=== PATIENT | male | born 1980 | race African-American/Black ===

== ENCOUNTER 2017-12-20 06:21 | Emergency (ER) | payer OTHER ==
[~2017-12-20] VITALS: Ht 182.9 cm; Wt 70.0 kg
[2017-12-20 06:29] VITALS: BP 130/71; PULSE 81; RESP 18; TEMP 97.8; O2SAT 98
[2017-12-20 06:56] LABS: AUTOMATED NEUTROPHIL # 2.5 TH/MM3 (1.8-7.7); BASOPHIL # 0.1 TH/MM3 (0-0.2); BASOPHIL % 0.9 % (0.0-2.0); EOSINOPHIL # 0.2 TH/MM3 (0-0.4); HEMATOCRIT 43.7 % (39.0-51.0); HEMOGLOBIN 15.3 GM/DL (13.0-17.0); LYMPH % 46.1 % (9.0-44.0); LYMPHOCYTE # 2.7 TH/MM3 (1.0-4.8); MEAN CELL VOLUME 98.2 FL (80.0-100.0); MEAN CORPUSCULAR HEMOGLOBIN 34.4 PG (27.0-34.0); MEAN PLATELET VOLUME 8.5 FL (7.0-11.0); MONO % 5.8 % (0.0-8.0); MONOCYTE # 0.3 TH/MM3 (0-0.9); NEUT % 43.2 % (16.0-70.0); PLATELET COUNT 316 TH/MM3 (150-450); RED BLOOD COUNT 4.45 MIL/MM3 (4.50-5.90); RED CELL DISTRIBUTION WIDTH 13.2 % (11.6-17.2); WHITE BLOOD COUNT 5.7 TH/MM3 (4.0-11.0)
--- NOTE | 2017-12-20 07:19 | PD ---
HPI Chief Complaint: Psychiatric Symptoms Time Seen by Provider: 07:17 Travel History International Travel<30 days: No Contact w/Intl Traveler<30days: No Traveled to known affect area: No History of Present Illness HPI 36-year-old male brought in under the Casey act with reported statements to hurt an unknown constitution party, as well as himself. Patient was felt to be intoxicated upon arrival. Patient is not very cooperative. Not a good historian. PFSH Past Medical History Hx Anticoagulant Therapy: No Cardiovascular Problems: No Chemotherapy: No Cerebrovascular Accident: No Diabetes: No Respiratory: No Past Surgical History Hysterectomy: No Social History Alcohol Use: Yes Tobacco Use: Yes Substance Use: Yes Allergies-Medications (Allergen,Severity, Reaction): Coded Allergies: Unable to Assess (Verified Allergy, Unknown, 12/20/17) Reported Meds & Prescriptions Reported Meds & Active Scripts Active Active Prescriptions or Reported Medications Unobtainable Review of Systems ROS Limitations: Intoxication, Uncooperative, Poor Historian Except as stated in HPI: all other systems reviewed are Neg General / Constitutional: No: Fever Eyes: No: Visual changes HENT: No: Headaches Cardiovascular: No: Chest Pain or Discomfort Respiratory: No: Shortness of Breath Gastrointestinal: No: Abdominal Pain Genitourinary: No: Dysuria Musculoskeletal: No: Pain Skin: No Rash Neurologic: No: Weakness Psychiatric: No: Depression Endocrine: No: Polydipsia Hematologic/Lymphatic: No: Easy Bruising Physical Exam Exam Limitations: Intoxication, Uncooperative Narrative GENERAL: Patient is arousable but otherwise appears intoxicated and in no acute distress. SKIN: Warm and dry. Normal color. Normal turgor. No signs of trauma HEAD: Atraumatic. Normocephalic. EYES: Pupils equal and round. No scleral icterus. No injection or drainage. ENT: No nasal bleeding or discharge. Mucous membranes pink and moist. NECK: Trachea midline. Supple. CARDIOVASCULAR: Regular rate and rhythm. RESPIRATORY: No accessory muscle use. Clear to auscultation. Breath sounds equal bilaterally. GASTROINTESTINAL: Abdomen soft, non-tender, nondistended. Hepatic and splenic margins not palpable. MUSCULOSKELETAL: Extremities without clubbing, cyanosis, or edema. No obvious deformities. NEUROLOGICAL: Awake and alert. No obvious cranial nerve deficits. Motor grossly within normal limits. Five out of 5 muscle strength in the arms and legs. Normal speech. Data Data Last Documented VS Vital Signs Date Time Temp Pulse Resp B/P (MAP) Pulse Ox O2 Delivery O2 Flow Rate FiO2 12/20/17 06:29 97.8 81 18 130/71 (90) 98 Orders Orders Complete Blood Count With Diff (12/20/17 06:38) Comprehensive Metabolic Panel (12/20/17 06:38) Psych Screen (12/20/17 06:38) Diet Regular Basic (12/20/17 Breakfast) Drug Screen, Random Urine (12/20/17 06:38) Alcohol (Ethanol) (12/20/17 06:38) Labs Laboratory Tests Test 12/20/17 06:46 White Blood Count 5.7 TH/MM3 Red Blood Count 4.45 MIL/MM3 Hemoglobin 15.3 GM/DL Hematocrit 43.7 % Mean Corpuscular Volume 98.2 FL Mean Corpuscular Hemoglobin 34.4 PG Mean Corpuscular Hemoglobin Concent 35.0 % Red Cell Distribution Width 13.2 % Platelet Count 316 TH/MM3 Mean Platelet Volume 8.5 FL Neutrophils (%) (Auto) 43.2 % Lymphocytes (%) (Auto) 46.1 % Monocytes (%) (Auto) 5.8 % Eosinophils (%) (Auto) 4.0 % Basophils (%) (Auto) 0.9 % Neutrophils # (Auto) 2.5 TH/MM3 Lymphocytes # (Auto) 2.7 TH/MM3 Monocytes # (Auto) 0.3 TH/MM3 Eosinophils # (Auto) 0.2 TH/MM3 Basophils # (Auto) 0.1 TH/MM3 CBC Comment DIFF FINAL Differential Comment MDM Medical Decision Making Medical Screen Exam Complete: Yes Emergency Medical Condition: Yes Differential Diagnosis Casey act. Homicidal ideation. Suicidal ideation. Narrative Course Psychiatric labs ordered per protocol. Psych screen is ordered. Scripts Unable to Obtain Active Prescriptions or Reported Meds Condition: Stable Lebron Danielson Dec 20, 2017 07:19
[2017-12-20 07:25] LABS: ALBUMIN 4.3 GM/DL (3.4-5.0); AST (GOT) 21 U/L (15-37); BICARBONATE 22.3 MEQ/L (21.0-32.0); BLOOD UREA NITROGEN 10 MG/DL (7-18); CALCIUM 8.5 MG/DL (8.5-10.1); CHLORIDE 108 MEQ/L (98-107); CREATININE 1.14 MG/DL (0.60-1.30); GLOMERULAR FILTRATION RATE 73 ML/MIN (>89); GLUCOSE,RANDOM 89 MG/DL (74-106); SODIUM (NA) 142 MEQ/L (136-145)
[2017-12-20 07:29] LABS: ALKALINE PHOSPHATASE 46 U/L (45-117); ALT (GPT) 21 U/L (12-78); TOTAL BILIRUBIN ADULT 0.3 MG/DL (0.2-1.0); TOTAL PROTEIN 8.3 GM/DL (6.4-8.2)
[2017-12-20 11:00] VITALS: BP 141/80; PULSE 95; RESP 18; TEMP 98.7; O2SAT 97
--- NOTE | 2017-12-20 17:28 | PD ---
History of Present Illness Chief Complaint: Psychiatric Symptoms Time Seen by Provider: 17:00 Travel History International Travel<30 Days: No Contact w/Intl Traveler<30days: No Known affected area: No Legal Status Legal Status: Casey Act Casey Act Signed By: Cuco Casey Act Comment: Officer Florencio Marquez #[id number] History of Present Illness: History of Present Illness HPI 36-year-old, -Ang[place], single male with no previous psychiatric history , presents under the Casey act initiated by law enforcement. The report alleges that the patient stated he wanted to hurt an unknown constitution party and that everyone takes them as a joke. He said he wanted to hurt himself and F somebody else up. He is intoxicated with an unknown substance." Patient on arrival to the ED had a blood alcohol level of 186. Toxicology obtained positive for cocaine. EMR reviewed. No previous contact with [facility] psychiatry. Patient was monitored and allowed to sober up clinically. He presented no behavioral concerns, no suicidality. Patient is seen. He has asleep but awakens easily. He is clinically sober. No evidence of any withdrawal. His speech is clear and logical, of low tone, normal rate. He states that the police brought him here because he was threatening other people where he is staying. He states " they were cursing me out". He also states" when I go to drinking people bother me." The patient does not present any evidence of any psychosis, no eldon or hypomania. He denies any hallucinations. The patient denies any symptom of depression or anxiety. Patient is currently denying any suicidal or homicidal ideation, intent or plan. The remainder of psychiatric review of systems is negative. He does not own any weapons. He denies any previous history of any violence. He tells me that he came down to [facility] [place] come [place] some friends and after some time and after he became intoxicated he got into some sort of altercation with his friends. He is requesting to be discharged and wants to return back to stay with his sister in [facility]. [facility] Past Medical History Medical History: Denies Significant Hx Hx Anticoagulant Therapy: No Cardiovascular Problems: No Chemotherapy: No Cerebrovascular Accident: No Diabetes: No Diminished Hearing: No Respiratory: No Tetanus Vaccination: Unknown Influenza Vaccination: Yes Past Surgical History Surgical History: No Previous Surgery Hysterectomy: No Psychiatric History Psychiatric History Hx Psychiatric Treatment: Pt denies any psych history. No hx of suicide attempts. No history of self-injurious behavior. History of Inpatient Treatment: No Guns or firearms in home: No Social History Single male. Lives with his sister. Completed 07/2711 grade education. Works through the labor force. Hx Alcohol Use: Yes Hx Tobacco Use: Yes Hx Substance Use: Yes Substance Use Type: Alcohol (Patient denies that he drinks every day.), Cocaine Hx of Substance Use Treatment: No Family Psychiatric History Negative Allergies-Medications (Allergen,Severity, Reaction): Coded Allergies: Unable to Assess (Verified Allergy, Unknown, 12/20/17) Reported Meds & Prescriptions Reported Meds & Active Scripts Active Active Prescriptions or Reported Medications Unobtainable Review of Systems Psychiatric: DENIES: Anxiety, Confusion, Mood changes, Depression, Hallucinations, Agitation, Suicidal Ideation, Homicidal Ideation, Delusions Except as stated in HPI: all other systems reviewed are Neg Mental Status Examination Appearance: Appropriate (Dressed in [facility]) Consciousness: Alert Orientation: x4 Motor Activity: Normal gait Speech: Unremarkable Language: Adequate Fund of Knowledge: Adequate Attention and Concentration: Adequate Memory: Unremarkable Mood: Appropriate Affect: Appropriate Thought Process & Associations: Intact, Logical, Goal directed Thought Content: Appropriate Hallucination Type: None Delusion Type: None Suicidal Ideation: No Suicidal Plan: No Suicidal Intention: No Homicidal Ideation: No Homicidal Plan: No Homicidal Intention: No Insight: Fair Judgment: Adequate [facility] Medical Decision Making Medical Record Reviewed: Yes Assessment/Plan 36-year-old, -[place], single male with no previous psychiatric history , presents under the Casey act initiated by law enforcement. The report alleges that the patient stated he wanted to hurt an unknown constitution party and that everyone takes him as a joke. He said he wanted to hurt himself and F somebody else up. He is intoxicated with an unknown substance." Patient on arrival to the ED had a blood alcohol level of 186. Toxicology obtained positive for cocaine. Patient was allowed to sober up clinically in safe environment. He presented no behavioral concerns, no suicidality, no agitation, no homicidal suicidality. Once clinically sober the patient presented no evidence of unstable mental illness. Denies any history of psychiatric treatment. Denies any suicidal or homicidal ideation. The Carmela act as lifted. Psychiatric clear for discharge from the ED. He requests his assistance in getting back to [place]. I have asked nursing staff to assist patient with disposition. Orders Orders Complete Blood Count With Diff (12/20/17 06:38) Comprehensive Metabolic Panel (12/20/17 06:38) Psych Screen (12/20/17 06:38) Diet Regular Basic (12/20/17 Breakfast) Drug Screen, Random Urine (12/20/17 06:38) Alcohol (Ethanol) (12/20/17 06:38) Diet Regular Basic (12/20/17 Dinner) Results Vital Signs Date Time Temp Pulse Resp B/P (MAP) Pulse Ox O2 Delivery O2 Flow Rate FiO2 12/20/17 11:00 98.7 95 18 141/80 (100) 97 Room Air 12/20/17 06:29 97.8 81 18 130/71 (90) 98 Laboratory Tests Test 12/20/17 06:46 12/20/17 12:30 White Blood Count 5.7 Red Blood Count 4.45 Hemoglobin 15.3 Hematocrit 43.7 Mean Corpuscular Volume 98.2 Mean Corpuscular Hemoglobin 34.4 Mean Corpuscular Hemoglobin Concent 35.0 Red Cell Distribution Width 13.2 Platelet Count 316 Mean Platelet Volume 8.5 Neutrophils (%) (Auto) 43.2 Lymphocytes (%) (Auto) 46.1 Monocytes (%) (Auto) 5.8 Eosinophils (%) (Auto) 4.0 Basophils (%) (Auto) 0.9 Neutrophils # (Auto) 2.5 Lymphocytes # (Auto) 2.7 Monocytes # (Auto) 0.3 Eosinophils # (Auto) 0.2 Basophils # (Auto) 0.1 CBC Comment DIFF FINAL Differential Comment Blood Urea Nitrogen 10 Creatinine 1.14 Random Glucose 89 Total Protein 8.3 Albumin 4.3 Calcium Level 8.5 Alkaline Phosphatase 46 Aspartate Amino Transf (AST/SGOT) 21 Alanine Aminotransferase (ALT/SGPT) 21 Total Bilirubin 0.3 Sodium Level 142 Potassium Level 4.0 Chloride Level 108 Carbon Dioxide Level 22.3 Anion Gap 12 Estimat Glomerular Filtration Rate 73 Ethyl Alcohol Level 186 Urine Opiates Screen NEG Urine Barbiturates Screen NEG Urine Amphetamines Screen NEG Urine Benzodiazepines Screen NEG Urine Cocaine Screen POS Urine Cannabinoids Screen NEG Diagnosis Primary Impression: Alcohol abuse Psychiatrically Cleared: Yes Med/ Other Pt Specific Info: No Meds Exist/No RX given Prescriptions Unable to Obtain Active Prescriptions or Reported Meds Disposition: 01 DISCHARGE HOME Condition: Stable Mary Jo Barber [facility] Dec 20, 2017 17:28
--- NOTE | 2017-12-20 17:35 | PD ---
Physical Exam Date Seen by Provider: Dec 20, 2017 Time Seen by Provider: 17:33 Narrative 36-year-old male previously medically cleared for psychiatric evaluation status post Casey act, has been seen and evaluated by psychiatric staff and felt to be psychiatrically stable for discharge at this time. Patient remains medically stable for discharge. Follow-up will be based on psychiatric note. Data Data Last Documented VS Vital Signs Date Time Temp Pulse Resp B/P (MAP) Pulse Ox O2 Delivery O2 Flow Rate FiO2 12/20/17 11:00 98.7 95 18 141/80 (100) 97 Room Air Orders Orders Complete Blood Count With Diff (12/20/17 06:38) Comprehensive Metabolic Panel (12/20/17 06:38) Psych Screen (12/20/17 06:38) Diet Regular Basic (12/20/17 Breakfast) Drug Screen, Random Urine (12/20/17 06:38) Alcohol (Ethanol) (12/20/17 06:38) Diet Regular Basic (12/20/17 Dinner) Labs Laboratory Tests Test 12/20/17 06:46 12/20/17 12:30 White Blood Count 5.7 TH/MM3 Red Blood Count 4.45 MIL/MM3 Hemoglobin 15.3 GM/DL Hematocrit 43.7 % Mean Corpuscular Volume 98.2 FL Mean Corpuscular Hemoglobin 34.4 PG Mean Corpuscular Hemoglobin Concent 35.0 % Red Cell Distribution Width 13.2 % Platelet Count 316 TH/MM3 Mean Platelet Volume 8.5 FL Neutrophils (%) (Auto) 43.2 % Lymphocytes (%) (Auto) 46.1 % Monocytes (%) (Auto) 5.8 % Eosinophils (%) (Auto) 4.0 % Basophils (%) (Auto) 0.9 % Neutrophils # (Auto) 2.5 TH/MM3 Lymphocytes # (Auto) 2.7 TH/MM3 Monocytes # (Auto) 0.3 TH/MM3 Eosinophils # (Auto) 0.2 TH/MM3 Basophils # (Auto) 0.1 TH/MM3 CBC Comment DIFF FINAL Differential Comment Blood Urea Nitrogen 10 MG/DL Creatinine 1.14 MG/DL Random Glucose 89 MG/DL Total Protein 8.3 GM/DL Albumin 4.3 GM/DL Calcium Level 8.5 MG/DL Alkaline Phosphatase 46 U/L Aspartate Amino Transf (AST/SGOT) 21 U/L Alanine Aminotransferase (ALT/SGPT) 21 U/L Total Bilirubin 0.3 MG/DL Sodium Level 142 MEQ/L Potassium Level 4.0 MEQ/L Chloride Level 108 MEQ/L Carbon Dioxide Level 22.3 MEQ/L Anion Gap 12 MEQ/L Estimat Glomerular Filtration Rate 73 ML/MIN Ethyl Alcohol Level 186 MG/DL Urine Opiates Screen NEG Urine Barbiturates Screen NEG Urine Amphetamines Screen NEG Urine Benzodiazepines Screen NEG Urine Cocaine Screen POS Urine Cannabinoids Screen NEG MDM Medical Record Reviewed: Yes Supervised Visit with VANE: Yes Narrative Course 36-year-old male previously medically cleared for psychiatric evaluation status post Casey act, has been seen and evaluated by psychiatric staff and felt to be psychiatrically stable for discharge at this time. Patient remains medically stable for discharge. Follow-up will be based on psychiatric note. Patient Instructions: General Instructions Scripts Unable to Obtain Active Prescriptions or Reported Meds Disposition: 01 DISCHARGE HOME Condition: Stable Lebron Danielson Dec 20, 2017 17:35
[2017-12-20 17:41] VITALS: BP 141/80; TEMP 98.7
== END 2017-12-20 18:24 | disposition home or self-care (01) ==
LOC: NEPD 06:21 → NEPJ 18:24
DX: F10.129 Alcohol abuse with intoxication, unspecified (principal); Y90.6 Blood alcohol level of 120-199 mg/100 ml; Z72.0 Tobacco use
CPT/HCPCS: 80053; 80307; 85025; 99284